=== PATIENT | female | born 1950 | race African-American/Black ===

== ENCOUNTER → 2016-03-07 | Outpatient (CLI) | payer BC ==
--- NOTE | 2016-03-11 07:13 | MM ---
Reason for exam: screening (asymptomatic). Physical Findings: A clinical breast exam by your physician is recommended on an annual basis and results should be correlated with mammographic findings. MG Screening Mammo w CAD Bilateral CC and MLO view(s) were taken. No prior studies available for comparison. There are scattered fibroglandular densities. There is no discrete abnormality. ASSESSMENT: Negative, BI-RAD 1 RECOMMENDATION: Routine screening mammogram of both breasts in 1 year.
== END | disposition home or self-care (01) ==
LOC: RADMAMWWP 15:31
PROVIDERS: ATTEND Family Medicine
DX: Z12.31 Encounter for screening mammogram for malignant neoplasm of breast (principal)

== ENCOUNTER → 2016-04-05 | Outpatient (CLI) | payer BC ==
--- NOTE | 2016-04-05 16:40 | FL ---
Sialogram INDICATION: Sialolithiasis left submandibular gland Procedure was explained to the patient. All questions were answered. Patient proceeded agreed to proc eed to the procedure. Patient was placed on the fluoroscopy table in supine view. The oral cavity was observed. The opening along the frenulum at the expected location for the submandibular duct cannot be identified. Careful search for the location was unsuccessful. The procedure was terminated due nonvisualization of the o rifice of the left submandibular duct. The unsuccessful localization was explained to the patient. Preliminary water sponger images were obtained. Some left carotid calcification appears to be present. Suspic ious submandibular calcification is not identified. IMPRESSIONS: 1. Unsuccessful localization of the salivary duct for sialogram.
== END | disposition home or self-care (01) ==
LOC: RADFLWHC 12:39
PROVIDERS: ATTEND Otolaryngology
DX: R22.1 Localized swelling, mass and lump, neck (principal)
CPT/HCPCS: 70390